=== PATIENT | male | born 1990 | race Caucasian/White ===

== ENCOUNTER → 2020-02-12 11:52 | Outpatient (REF) | payer OTHER, SELFPAY ==
--- NOTE | 2020-02-12 11:30 | CA_ITS ---
Transthoracic Echocardiogram Patient (Last, First, Middle): Brock Forbes, Gender: Male Date of : 1990 Age: 29 Procedure Date: 02/12/2020 Procedure Type: Transthoracic Echocardiogram Location: OP Height: 193.04 cm Weight: 130.18 kg BSA: 2.58 m2 Heart Rate: bpm BP: 104 / 72 mmHg [employer] Instructor: OSVALDO Referring MD: Ava Lazo [employer] Symptoms: i42.9 cmp check lvf Study Quality: Good ECG Rhythm: Sinus Conclusions: - The left ventricular systolic function is moderately decreased. The visually estimated ejection fraction is between 35-40%. Findings Procedure Information Contrast agent, definity, is being given per protocol without apparent complications. Left Ventricle Normal left ventricular cavity size. The left ventricular systolic function is moderately decreased. The visually estimated ejection fraction is between 35-40%. There is moderate global hypokinesis. Prior Study Comparison Changes noted compared to prior study dated: 11/09/2019. LVEF seems higher than previously reported. Measurements 2D Linear Measurements LVIDd: 6.28 3.9-5.3/4.2-5.9 cm LVIDd Index: 2.43 2.4-3.2/2.2-3.1 cm/m2 LVIDs: 5.15 2.0-3.6 cm 2D Systolic Function EF 4C: 36.10 >55% EF 2C: 38.30 >55% EF BiP: 37.50 >55% Mitral Valve MV Pk E: 1.81 MV PK A: 0.54 MV Decel Time: 173.00 E/A: 3.40 E'Lateral: 16.30 E'Medial: 9.77 E/E' Med: 18.50 E/E' Lat: 11.10 PHT: 51.00 MVA PHT: 4.31 Decel [place]: 10.52 Diastolic Function MV Pk E: 1.81 MV Pk A: 0.54 E/A: 3.40 E'Medial: 9.77 E/E' Med: 18.50 E' Laterial: 16.30 E/E' Lat: 11.10 Updated in Other Vendor System with Status of Final Vern Johnson MD electronically signed on 02/12/2020 4:26:55 PM with status of Final
== END ==
LOC: HO.CARD 11:52
PROVIDERS: Visit Provider Nurse Practitioner Family
DX: I42.9 Cardiomyopathy, unspecified (principal); I50.21 Acute systolic (congestive) heart failure; I34.0 Nonrheumatic mitral (valve) insufficiency; I07.1 Rheumatic tricuspid insufficiency; I10 Essential (primary) hypertension; I47.2 Ventricular tachycardia
CPT/HCPCS: 70120; Q9957

== ENCOUNTER 2020-03-04 09:46 | Outpatient (REF) | payer OTHER, SELFPAY ==
[2020-03-04 12:30] LABS: Anion Gap 12 (12-20); Blood Urea Nitrogen 15 mg/dL (9-16); Calcium 9.4 mg/dL (8.4-10.2); Carbon Dioxide 29 mmol/L (22-29); Chloride 104 mmol/L (96-108); Estimated Glomerular Filt Rate > 60; Glucose Random 99 mg/dL (60-115); Potassium 4.9 mmol/l (3.3-5.1); Sodium 140 mmol/L (135-145)
[2020-03-04 12:35] LABS: B Type Natriuretic Peptide 182 pg/mL (<100)
== END 2020-03-04 09:47 | disposition home or self-care (01) ==
LOC: HO.LAB 09:46
PROVIDERS: Visit Provider Internal Medicine Cardiovascular Disease
DX: I11.0 Hypertensive heart disease with heart failure (principal); I50.20 Unspecified systolic (congestive) heart failure; I42.8 Other cardiomyopathies
CPT/HCPCS: 80048; 83880; 99212

== ENCOUNTER 2020-03-17 22:18 | Emergency (ER) | payer OTHER, SELFPAY ==
[2020-03-17 22:53] VITALS: BP 108/61; PULSE 58; RESP 18; TEMP 36.6; O2SAT 96
[2020-03-17 22:55] VITALS: BP 108/61; PULSE 58; RESP 18; TEMP 36.6; O2SAT 96; BMI 34.9
--- NOTE | 2020-03-17 23:06 | ED.EXTPRO ---
HPI - Extremity Problem General Chief complaint: General Medical Stated complaint: chest pain Time Seen by Provider: 03/17/20 22:46 Source: patient Mode of arrival: ambulatory Limitations: language barrier History of Present Illness HPI Narrative: patient has history of hypertension on diuretics was working earlier today when he came home notice cramps in his thighs specially more on the right side. At this time is feeling better no leg swelling no other complaints MD Complaint: extremity pain Pain Consistency: constant Location: right Quality: aching Radiation: proximal Related Data Home Medications Medication Instructions Recorded Confirmed spironolactone 25 mg tablet 25 mg PO DAILY 03/04/20 torsemide 20 mg tablet 40 mg PO DAILY 03/04/20 Previous Rx's Medication Instructions Recorded carvedilol 25 mg tablet 25 mg PO Q12H #60 tab 03/04/20 sacubitril 97 mg-valsartan 103 mg 1 tab PO BID #60 tab 03/04/20 tablet Allergies Allergy/AdvReac Type Severity Reaction Status Date / Time No Known Allergies Allergy Unverified 01/17/20 19:45 [No Known Allergies*] Review of Systems Review of Systems: REVIEW OF SYSTEMS: Pertinent positives and negatives are stated above in the history. GEN: no fevers, chills, fatigue HEENT: no nasal congestion, sore throat, ear pain NEURO: no headache, dizziness, focal weakness PULM: no cough, shortness of breath CV: no chest pain, palpitations, LE edema ABD: no abdominal pain, nausea, vomiting, diarrhea : no dysuria, urgency, frequency SKIN: no rash ROS otherwise negative x 10 PMFSH Past Medical History Medical History HTN (hypertension) Nonischemic cardiomyopathy NSVT (nonsustained ventricular tachycardia) Systolic heart failure Surgical History Hx of cardiac cath Family History Family History Father No problems noted. Mother CVD (cardiovascular disease) Maternal Grandfather CVD (cardiovascular disease) Social History Social History Smoking Status: Former smoker Advance Directives: No Physical Exam Vital Signs: Vital Signs: Last Vital Signs Temp 98 F 03/17/20 22:55 Pulse 58 03/17/20 22:55 Resp 18 03/17/20 22:55 BP 108/61 03/17/20 22:55 Pulse Ox 96 03/17/20 22:55 Body Mass Index 34.9 Appearance: Alert. Oriented X3. No acute distress. Eyes: Pupils equal, round and reactive to light. ENT: Pharynx normal. Neck: Normal inspection. Neck supple. CVS: Normal heart rate and rhythm. Pulses normal. Respiratory: No respiratory distress. Breath sounds normal. Abdomen: Soft and nontender. Skin: Skin warm and dry. Normal skin color. Normal skin turgor. Extremities: No lower extremity edema. Good range of movement mild tenderness right thigh area without any swelling or skin color change, peripheral pulses palpable Neuro: Oriented X 3. No motor deficit. No sensory deficit. Course Course Course Narrative: patient nonspecific muscular cramps labs are stable no lab abnormalities patient advised to drink plenty of fluids MDM - Extremity (Nontraumatic) Lab Data Result diagrams: 03/17/20 23:12 03/17/20 23:12 Labs: Lab Results 03/17/20 03/17/20 03/17/20 Range/Units 23:12 23:12 23:12 WBC 11.0 H (4.8-10.8) X10*3/uL RBC 4.61 (4.60-5.80) X10*6/uL Hgb 13.9 L (14.0-18.0) g/dl Hct 42.3 (42-52) % MCV 91.8 (80-98) fL MCH 30.2 (27.0-33.0) pg MCHC 32.9 (31.0-36.0) g/dl RDW 15.9 (11.0-16.0) % Plt Count 307 (160-400) X10*3/uL MPV 9.3 L (9.4-12.4) fL Immature Gran % (Auto) 0.3 (0.0-0.4) % Neut % (Auto) 74.7 H (45-73) % Lymph % (Auto) 17.0 L (20-40) % [place] % (Auto) 6.5 (2-11) % Eos % (Auto) 1.0 (0-4) % Baso % (Auto) 0.5 (0-2) % Lymph # (Auto) 1.9 (1.2-4.9) X10*3/uL [place] # (Auto) 0.7 (0.1-1.2) X10*3/uL Eos # (Auto) 0.1 (0.0-0.4) X10*3/uL Baso # (Auto) 0.1 (0.0-0.2) X10*3/uL Abs Immat Gran (auto) 0.03 (0.00-0.03) X10*3/uL Absolute Neuts (auto) 8.2 (2.0-8.3) X10*3/uL Absolute Nucleated RBC 0.000 (0.0-0.012) X10*3/uL Nucleated RBC % (auto) 0.0 (0.0-0.2) /100WBC Sodium 138 (135-145) mmol/L Potassium 4.3 (3.3-5.1) mmol/l Chloride 101 (96-108) mmol/L Carbon Dioxide 26 (22-29) mmol/L Anion Gap 15 (12-20) BUN 19 H (9-16) mg/dL Creatinine 1.15 (0.5-1.4) mg/dL Estim Creat Clear Calc 137.0 Estimated GFR > 60 Random Glucose 106 (60-115) mg/dL Calcium 9.1 (8.4-10.2) mg/dL Magnesium 2.4 (1.6-2.6) mg/dL Total Creatine Kinase 187 H (38-174) U/L Discharge Plan Discharge Clinical Impression: Cramp in muscle Patient Disposition: Home, Self-Care Instructions: Musculoskeletal Pain (ED) Additional Instructions: drink plenty of fluids, take Tylenol for pain Prescriptions: No Action spironolactone 25 mg tablet 25 mg PO DAILY RF: 0 torsemide 20 mg tablet 40 mg PO DAILY RF: 0 carvedilol [Coreg] 25 mg tablet 25 mg PO Q12H Qty: 60 RF: 2 Entresto 97-103 mg tablet 1 tab PO BID Qty: 60 RF: 2 Print Language: Arabic
[2020-03-17 23:20] LABS: Basophils Absolute Auto 0.1 X10*3/uL (0.0-0.2); Basophils Percent Auto 0.5 % (0-2); Eosinophils Absolute Auto 0.1 X10*3/uL (0.0-0.4); Hematocrit 42.3 % (42-52); Hemoglobin 13.9 g/dl (14.0-18.0); Imm Gran Abs Auto 0.03 X10*3/uL (0.00-0.03); Imm Gran Pct Auto 0.3 % (0.0-0.4); Lymphocytes Absolute Auto 1.9 X10*3/uL (1.2-4.9); MANUAL DIFF FLAG NO; Mean Corpuscular HGB Conc 32.9 g/dl (31.0-36.0); Mean Corpuscular Hemoglobin 30.2 pg (27.0-33.0); Mean Corpuscular Volume 91.8 fL (80-98); Mean Platelet Volume 9.3 fL (9.4-12.4); Monocytes Absolute Auto 0.7 X10*3/uL (0.1-1.2); Monocytes Percent Auto 6.5 % (2-11); Neutrophils Absolute Auto 8.2 X10*3/uL (2.0-8.3); Neutrophils Percent Auto 74.7 % (45-73); Platelet Count 307 X10*3/uL (160-400); Red Blood Count 4.61 X10*6/uL (4.60-5.80); Red Cell Distribution Width 15.9 % (11.0-16.0)
[2020-03-18] VITALS: PULSE 74; RESP 13
[2020-03-18 00:34] LABS: Anion Gap 15 (12-20); Blood Urea Nitrogen 19 mg/dL (9-16); Calcium 9.1 mg/dL (8.4-10.2); Carbon Dioxide 26 mmol/L (22-29); Chloride 101 mmol/L (96-108); Estimated Glomerular Filt Rate > 60; Glucose Random 106 mg/dL (60-115); Magnesium 2.4 mg/dL (1.6-2.6); Potassium 4.3 mmol/l (3.3-5.1); Sodium 138 mmol/L (135-145)
--- NOTE | 2020-03-19 | ECG_ITS ---
Test Reason : CP Blood Pressure : / mmHG Vent. Rate : 058 BPM Atrial Rate : 058 BPM P-R Int : 150 ms QRS Dur : 108 ms QT Int : 474 ms P-R-T Axes : 006 013 032 degrees QTc Int : 465 ms Sinus bradycardia Minimal voltage criteria for LVH, may be normal variant Borderline ECG When compared with ECG of 09-NOV-2019 02:16, Vent. rate has decreased BY 53 BPM Nonspecific T wave abnormality no longer evident in Lateral leads Referred By: Manuel Barreto Electronically Signed By:VIKTORIA JOY MD
== END 2020-03-18 01:14 | disposition home or self-care (01) ==
PROVIDERS: Emergency Provider Internal Medicine
DX: R07.81 Pleurodynia (principal); I10 Essential (primary) hypertension; Z87.891 Personal history of nicotine dependence; Z79.899 Other long term (current) drug therapy
CPT/HCPCS: 36415; 80048; 82550; 83735; 85025; 93005; 99283; 99284